=== PATIENT | female | born 1985 | race Caucasian/White ===

== ENCOUNTER → 2017-12-06 | Outpatient (CLI) | payer OTHER ==
[~2017-12-06] MED LIST: IOHEXOL 300 MG/ML 50 ML BTL (for RAD DIAG) I-UTERINE ONE
--- NOTE | 2017-12-06 11:19 | RADRPT ---
EXAM DATE/TIME: 12/06/2017 07:58 [place] COMPARISON: No previous studies available for comparison. INDICATIONS : Ovarian Dysfunction. FLUORO TIME: 0.5 minutes IMAGE COUNT: 4 CONTRAST: 15 cc Omnipaque 300 (iohexol) DEVICE: [place] Cannula MEDICAL HISTORY : None. SURGICAL HISTORY : None. ENCOUNTER: Initial ACUITY: 1 day PAIN SCORE: 0/10 LOCATION: Bilateral ovaries. FINDINGS: Preliminary film is normal. Technical aspect of the cervical cannulation injection of contrast perf ormed by the referring physician. Examination is performed under fluoroscopic control. There is some mucosal irregularity in the right horn/infundibulum of the uterus. The body and left ho rn are radiographically normal. There is rapid filling of the fallopian tubes and passage into the p michael bilaterally. CONCLUSION: 1. The fallopian tubes are widely patent with free spillage of contrast into the pelvic cavity. 2. Mucosal irregularity in the right horn/infundibulum of the uterus. The body and left horn are radi ographically normal. Reynaldo Lorenzana MD on December 06, 2017 at 11:12 Board Certified Radiologist. This report was verified electronically.
== END ==
LOC: HRAD 07:32
PROVIDERS: ATTEND Obstetrics & Gynecology
DX: E28.9 Ovarian dysfunction, unspecified (principal)
CPT/HCPCS: 74740; Q9967